=== PATIENT | female | born 1975 | race Two or more races ===

== ENCOUNTER 2022-01-01 19:29 | Emergency (ER) | payer OTHER ==
[2022-01-01] MEDS ORDERED: SODIUM CHLORIDE 0.9% 1,000 ML IV STA (19:43)
[2022-01-01] MEDS ORDERED: DIPH,PERTUS(ACELL)TETVAC-LF 0.5 ML VIAL IM ONE (19:43)
[2022-01-01] MEDS ORDERED: RX INFO: IV CONTRAST WAS GIVEN 1 EACH MISC MISCELLANE PRN (19:45)
[2022-01-01 19:52] LABS: Basophils % (A) 0 %; Eosinophils # (A) 0.3 k/uL (0-0.7); Eosinophils % (A) 2 %; HCT 33.1 % (34.0-46.0); HGB 12.4 gm/dL (11.4-16.0); Lymphocytes # (A) 4.1 k/uL (1.0-4.8); Lymphocytes % (A) 34 %; MCH 32.9 pg (25.0-35.0); MCHC 37.5 g/dL (31.0-37.0); MCV 87.7 fL (80.0-100.0); Mean Platelet Volume 8.2; Monocytes # (A) 0.3 k/uL (0-1.0); Monocytes % (A) 2 %; Neutrophils # (A) 7.1 k/uL (1.3-7.7); Neutrophils % (A) 59 %; Platelet Count 301 k/uL (150-450); RBC 3.78 m/uL (3.80-5.40); RDW 12.9 % (11.5-15.5)
[2022-01-01 19:59] LABS: AST 243 U/L (14-36); African American GFR (CKD) 76 (>60 ml/min/1.73 sqM); Albumin 3.3 g/dL (3.5-5.0); Alcohol <10 mg/dL; Alkaline Phosphatase 77 U/L (38-126); Anion Gap 12 mmol/L; Blood Urea Nitrogen 11 mg/dL (7-17); Calcium 7.1 mg/dL (8.4-10.2); Carbon Dioxide 14 mmol/L (22-30); Chloride 109 mmol/L (98-107); Glucose 152 mg/dL (74-99); Non-African American GFR(CKD) 66 (>60 ml/min/1.73 sqM); Potassium 3.7 mmol/L (3.5-5.1); Sodium 135 mmol/L (137-145); Total Bilirubin 0.3 mg/dL (0.2-1.3); Total Protein 5.8 g/dL (6.3-8.2)
[2022-01-01 20:15] LABS: ALT 132 U/L (4-34)
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
--- NOTE | 2022-01-01 20:21 | XR ---
EXAMINATION TYPE: XR pelvis AP view DATE OF EXAM: 01/01/2022 COMPARISON: NONE HISTORY: Pain TECHNIQUE: Single view FINDINGS: There is no sign of intestinal obstruction or pneumoperitoneum. Fecal pattern is normal. There is fracture of the left inferior pubic ramus. There is nondisplaced transverse fracture through the medial aspect left acetabulum. Sacroiliac joints are intact. IMPRESSION: Acute nondisplaced fractures of the left superior and inferior pubic rami.
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
[2022-01-01] MEDS ORDERED: MIDAZOLAM HCL 50 MG in SODIUM CHLORIDE 0.9% 40 ML IV SCH (20:45)
[2022-01-01] MEDS ORDERED: SODIUM CHLORIDE 0.9% 80 ML with fentaNYL (PF) 1,000 MCG IV SCH ×2 (20:45)
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
--- NOTE | 2022-01-01 21:03 | XR ---
EXAMINATION TYPE: XR knee limited RT DATE OF EXAM: 01/01/2022 COMPARISON: NONE HISTORY: Post reduction TECHNIQUE: 2 views FINDINGS: There is anatomic reduction of the dislocated knee joint. There is bony density over the la teral joint space consistent with large chip fracture of the tibia there is bony densities over the t ibial spines anteriorly and posteriorly consistent with large chip fractures. IMPRESSION: Anatomic reduction of the knee joint. Multiple chip fractures.
--- NOTE | 2022-01-01 21:04 | XR ---
EXAMINATION TYPE: XR chest 1V portable DATE OF EXAM: 01/01/2022 COMPARISON: NONE HISTORY: Tube placement TECHNIQUE: Single view FINDINGS: The endotracheal tube is 3 cm from the lopez. The lungs are clear of infiltrate. No heart failure. No evidence of pleural effusion or pneumothorax. There are chest leads. IMPRESSION: Tubing in good position. No active cardiopulmonary disease.
[2022-01-01 21:28] VITALS: BP 81/58; PULSE 85; RESP 24
== END 2022-01-01 21:24 | disposition other institution (70) ==
LOC: EDBD → EC 19:29
DX: S42.452A Displaced fracture of lateral condyle of left humerus, initial encounter for closed fracture (principal); S72.92XA Unspecified fracture of left femur, initial encounter for closed fracture; S06.0X0A Concussion without loss of consciousness, initial encounter; S32.502A Unspecified fracture of left pubis, initial encounter for closed fracture; S01.81XA Laceration without foreign body of other part of head, initial encounter; I21.4 Non-ST elevation (NSTEMI) myocardial infarction; E87.21 Acute metabolic acidosis; Z99.11 Dependence on respirator [ventilator] status; V09.20XA Pedestrian injured in traffic accident involving unspecified motor vehicles, initial encounter
CPT/HCPCS: 36415; 94002; 86900; 86901; 80053; 83605; 84484; 85025; 85730; 86850; 80320; 72170; 73590; 73560; 71045; 72125; 70450; 71260; 74177; 73706; 99291; 96374; 96375 ×2; 31500; 27560; 29505; J3010; J0690; J2250; Q9967

== ENCOUNTER 2022-02-11 01:49 | Emergency (ER) | payer OTHER ==
[2022-02-11 02:14] VITALS: RESP 16; TEMP 98.3
[2022-02-11] MEDS ORDERED: SODIUM CHLORIDE 0.9% 1,000 ML IV STA (02:31)
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
--- NOTE | 2022-02-11 03:19 | CT ---
EXAMINATION TYPE: CT angio head neck CT DLP: 712 mGycm, Automated exposure control for dose reduction was used. DATE OF EXAM: 02/11/2022 3:07 AM COMPARISON: None. CLINICAL INDICATION:Female, 46 years old with history of weak, KIM/VERTIGO TECHNIQUE: Axially acquired helical CT angiogram of the head and neck was obtained with contrast. Axi al images are supplemented with 3D reconstructions which [email or web address] NASCET criteria used. Contrast used:65 mL of Isovue 370 with IV Contrast, Oral contrast used: None. FINDINGS: CTA HEAD: No evidence of acute intracranial hemorrhage, mass effect, or midline shift. The ventricles, sulci, a nd cisterns are unremarkable. The visualized portions of the internal carotid arteries, middle cerebral arteries, anterior cerebral arteries, and posterior cerebral arteries are patent. The basilar and vertebral arteries are patent. CTA NECK: Right Carotid System: The common carotid artery and external carotid artery are patent. The carotid bifurcation demonstrate s no evidence of hemodynamically significant stenosis. There is a medialized course of the internal c arotid artery. The remaining portions of the internal carotid artery demonstrate normal size without significant narrowing. Left Carotid System: The common carotid artery and external carotid artery are patent. The carotid bifurcation demonstrate s no evidence of hemodynamically significant stenosis. There is a medialized course of the internal c arotid artery. The remaining portions of the internal carotid artery demonstrate normal size without significant narrowing. Vertebral arteries are patent without evidence hemodynamically significant stenosis. There is a three-vessel aortic arch. The origins of the great vessels are patent. No evidence of hemo dynamically significant stenosis. IMPRESSION: 1. No evidence of dissection of the cervical internal carotid arteries or vertebral arteries or any e vidence of significant stenosis at the carotid bifurcations. 2. No evidence of intracranial high-grade stenosis or intracranial aneurysm.
[2022-02-11 03:24] LABS: African American GFR (CKD) >90 (>60 ml/min/1.73 sqM); Albumin 4.7 g/dL (3.5-5.0); Anion Gap 8 mmol/L; Blood Urea Nitrogen 13 mg/dL (7-17); Carbon Dioxide 26 mmol/L (22-30); Chloride 103 mmol/L (98-107); Glucose 99 mg/dL (74-99); Magnesium 2.1 mg/dL (1.6-2.3); Non-African American GFR(CKD) >90 (>60 ml/min/1.73 sqM); Phosphorus 5.6 mg/dL (2.5-4.5); Potassium 4.2 mmol/L (3.5-5.1); Sodium 137 mmol/L (137-145); Total Protein 8.3 g/dL (6.3-8.2)
[2022-02-11 03:25] LABS: ALT 20 U/L (4-34); AST 18 U/L (14-36); Alkaline Phosphatase 131 U/L (38-126); Total Bilirubin 0.6 mg/dL (0.2-1.3)
[2022-02-11 03:28] LABS: Basophils % (A) 0 %; Eosinophils # (A) 0.2 k/uL (0-0.7); Eosinophils % (A) 2 %; HCT 40.6 % (34.0-46.0); HGB 13.3 gm/dL (11.4-16.0); Lymphocytes # (A) 1.9 k/uL (1.0-4.8); Lymphocytes % (A) 17 %; MCH 29.7 pg (25.0-35.0); MCHC 32.7 g/dL (31.0-37.0); MCV 90.7 fL (80.0-100.0); Mean Platelet Volume 7.5; Monocytes # (A) 0.6 k/uL (0-1.0); Monocytes % (A) 5 %; Neutrophils # (A) 8.6 k/uL (1.3-7.7); Neutrophils % (A) 75 %; Platelet Count 394 k/uL (150-450); RBC 4.48 m/uL (3.80-5.40); RDW 13.9 % (11.5-15.5); WBC 11.5 k/uL (3.8-10.6)
[2022-02-11 04:02] LABS: INR 0.9 (<1.2); Prothrombin Time 9.8 sec (9.0-12.0)
[2022-02-11 04:03] LABS: Partial Thromboplastin Time 24.7 sec (22.0-30.0)
[2022-02-11 05:28] VITALS: BP 125/91; PULSE 75
== END 2022-02-11 05:39 | disposition home or self-care (01) ==
LOC: EDBD → EC 01:49
DX: R53.1 Weakness (principal); R20.2 Paresthesia of skin; R42 Dizziness and giddiness; F12.90 Cannabis use, unspecified, uncomplicated
CPT/HCPCS: 36415; 93005; 80053; 83735; 84100; 84484; 85025; 85610; 85730; 70496; 70450; 70498; 99285; 96360; 96361; Q9967